=== PATIENT | male | born 1990 | race African-American/Black ===

== ENCOUNTER 2019-05-08 12:32 | Emergency (ER) | payer SELFPAY ==
[~2019-05-08] VITALS: Ht 185.4 cm; Wt 128.8 kg
[~2019-05-08 12:32] MED LIST: AMLO10TA8 PO; OXYC1TAB22 PO
[2019-05-08 12:41] VITALS: BP 154/81
[2019-05-08] MEDS ORDERED: IBUP-1007 PO (12:55)
[2019-05-08] MEDS ORDERED: ORPH100T PO (12:55)
--- NOTE | 2019-05-08 12:55 | PHYS DOC ---
Past Medical History Past Medical History: No Pertinent History Past Surgical History: Appendectomy Alcohol Use: Occasionally Drug Use: None Adult General Chief Complaint Chief Complaint: LOWER BACK PAIN OR INJURY HPI HPI Patient is a 29 year old male that presents with lower back pain has been ongoing since Tuesday. The patient states he was doing laundry at a laundry basket down in his lower back started hurting. The patient states that it is gotten slightly better but is still lingering. He rates his pain as 6 out of 10 in severity. Review of Systems Review of Systems Constitutional: Denies fever or chills [] Eyes: Denies change in visual acuity, redness, or eye pain [] HENT: Denies nasal congestion or sore throat [] Respiratory: Denies cough or shortness of breath [] Cardiovascular: No additional information not addressed in HPI [] GI: Denies abdominal pain, nausea, vomiting, bloody stools or diarrhea [] : Denies dysuria or hematuria [] Musculoskeletal: Reports back pain. Integument: Denies rash or skin lesions [] Neurologic: Denies headache, focal weakness or sensory changes [] Endocrine: Denies polyuria or polydipsia [] Complete systems were reviewed and found to be within normal limits, except as documented in this note. Current Medications Current Medications Current Medications Medications (Trade) Dose Ordered Sig/Pooja Start Time Stop Time Status Last Admin Dose Admin Ketorolac Tromethamine (Toradol Im) 30 mg 1X ONCE 05/08/19 13:00 05/08/19 13:01 Orphenadrine Citrate (Norflex) 60 mg 1X ONCE 05/08/19 13:00 05/08/19 13:01 Allergies Allergies Allergies Coded Allergies Type Severity Reaction Last Updated Verified No Known Drug Allergies 10/08/15 No Physical Exam Physical Exam Constitutional: Well developed, well nourished, no acute distress, non-toxic appearance. [] HENT: Normocephalic, atraumatic, bilateral external ears normal, oropharynx mo ist, no oral exudates, nose normal. [] Eyes: PERRLA, EOMI, conjunctiva normal, no discharge. [] Neck: Normal range of motion, no tenderness, supple, no stridor. [] Cardiovascular:Heart rate regular rhythm, no murmur [] Lungs & Thorax: Bilateral breath sounds clear to auscultation [] Abdomen: Bowel sounds normal, soft, no tenderness, no masses, no pulsatile masses. [] Skin: Warm, dry, no erythema, no rash. [] Back: lower back tenderness in the lumbar area to the right of spine, no CVA tenderness. [] Extremities: No tenderness, no cyanosis, no clubbing, ROM intact, no edema. [] Neurologic: Alert and oriented X 3, normal motor function, normal sensory function, no focal deficits noted. [] Psychologic: Affect normal, judgement normal, mood normal. [] Current Patient Data Vital Signs Vital Signs Date Time Temp Pulse Resp B/P (MAP) Pulse Ox O2 Delivery O2 Flow Rate FiO2 05/08/19 12:41 99.1 86 16 154/81 (105) 95 Room Air 99.1 EKG EKG [] Radiology/Procedures Radiology/Procedures [] Course & Med Decision Making Course & Med Decision Making Pertinent Labs and Imaging studies reviewed. (See chart for details) Appears musculoskeletal in nature. Will give Norflex/Toradol and write a script for home. Dragon Disclaimer Dragon Disclaimer This electronic medical record was generated, in whole or in part, using a voice recognition dictation system. Departure Departure Impression: Primary Impression: Lower back injury Disposition: HOME, SELF-CARE Condition: STABLE Referrals: NO PCP (PCP) Patient Instructions: Back Pain, Adult Additional Instructions: Thank you for visiting [facility]. We appreciate you trusting us with your care. If any additional problems come up don't hesitate to return to visit us. Please follow up with your primary care provider so they can plan additional care if needed and know about the problem that you had. If symptoms worsen come back to the Emergency Department. Any concerning symptoms that start such as chest pain, shortness of air, weakness or numbness on one side of the body, running high fevers or any other concerning symptoms return to the ER. Please fill your medications at any pharmacy and follow the prescription instructions. Scripts Ibuprofen (IBUPROFEN) 600 Mg Tablet 600 MG PO PRN Q6HRS PRN for INFLAMMATION, #20 TAB Prov: ROYA STARKS APRN 05/08/19 Orphenadrine Citrate (ORPHENADRINE CITRATE) 100 Mg Tablet.er 1 TAB PO BID PRN for MUSCLE SPASMS, #30 TAB Prov: ROYA STARKS APRN 05/08/19 Problem Qualifiers Primary Impression: Lower back injury Encounter type: initial encounter Qualified Codes: S39.92XA - Unspecified injury of lower back, initial encounter ROYA STARKS APRN May 08, 2019 12:55
[2019-05-08] MEDS ORDERED: KETOROLAC 60 MG/2 ML VIAL. IM ONE (13:00)
[2019-05-08] MEDS ORDERED: ORPHENADRINE CITRATE 60 MG/2 ML VIAL. IM ONE (13:00)
== END 2019-05-08 13:47 | disposition home or self-care (01) ==
LOC: ER 12:32
DX: S39.82XA Other specified injuries of lower back, initial encounter (principal); Z90.89 Acquired absence of other organs; X50.9XXA Other and unspecified overexertion or strenuous movements or postures, initial encounter; Y93.E2 Activity, laundry; Y92.89 Other specified places as the place of occurrence of the external cause; Y99.8 Other external cause status
CPT/HCPCS: 96372; 99284; J1885; J2360

== ENCOUNTER 2019-07-20 04:49 | Emergency (ER) | payer SELFPAY ==
[~2019-07-20] VITALS: Ht 188 cm; Wt 136.1 kg
[~2019-07-20 04:49] MED LIST changes: +IBUP-1007 PO; +ORPH100T PO
--- NOTE | 2019-07-20 05:44 | PHYS DOC ---
Past Medical History Past Medical History: No Pertinent History (PRATEEK LARSEN MD) Past Surgical History: Appendectomy (PRATEEK LARSEN MD) Alcohol Use: Occasionally Drug Use: Marijuana (PRATEEK LARSEN MD) Adult General Chief Complaint Chief Complaint: ABDOMINAL PAIN HPI HPI 29-year-old male presents to the emergency department with complaints of left lower quadrant abdominal pain, described as dull sensation. Patient states started around 3 yesterday. He describes nausea, vomiting, hematemesis, constipation, no fever. Nothing makes his pain worse, nothing makes his pain better. Patient does have a history of tobacco use. No history of abdominal pain, he states he's had a history of appendicitis status post surgery. (PRATEEK LARSEN MD) Review of Systems Review of Systems Constitutional: Denies fever or chills [] Respiratory: Denies cough or shortness of breath [] Cardiovascular: No additional information not addressed in HPI [] GI: Left lower quadrant abdominal pain, nausea, vomiting : Denies dysuria or hematuria [] Integument: Denies rash or skin lesions [] Neurologic: Denies headache, focal weakness or sensory changes [] Endocrine: Denies polyuria or polydipsia [] All other systems were reviewed and found to be within normal limits, except as documented in this note. (PRATEEK LARSEN MD) Current Medications Current Medications Current Medications Medications (Trade) Dose Ordered Sig/Pooja Start Time Stop Time Status Last Admin Dose Admin Info (CONTRAST GIVEN -- Rx MONITORING) 1 each PRN DAILY PRN 07/20/19 06:30 07/22/19 06:29 Iohexol (Omnipaque 300 Mg/ml) 75 ml 1X ONCE 07/20/19 06:30 07/20/19 06:31 DC 07/20/19 06:36 75 ML Morphine Sulfate (Morphine Sulfate) 4 mg 1X ONCE 07/20/19 05:45 07/20/19 05:46 DC 07/20/19 06:04 4 MG Ondansetron HCl (Zofran) 4 mg 1X ONCE 07/20/19 05:45 07/20/19 05:46 DC 07/20/19 06:04 4 MG Sodium Chloride 1,000 ml @ 1,000 mls/hr Q1H 07/20/19 05:45 07/20/19 06:44 DC 07/20/19 06:03 1,000 MLS/HR (MARY AMBRIZ MD) Allergies Allergies Allergies Coded Allergies Type Severity Reaction Last Updated Verified No Known Drug Allergies 10/08/15 No (MARY AMBRIZ MD) Physical Exam Physical Exam Constitutional: Well developed, well nourished, mild distress secondary to pain, non-toxic appearance. [] HENT: Normocephalic, atraumatic, bilateral external ears normal, oropharynx moist, no oral exudates, nose normal. [] Eyes: PERRLA, EOMI, conjunctiva normal, no discharge. [] Cardiovascular:Heart rate regular rhythm, no murmur [] Lungs & Thorax: Bilateral breath sounds clear to auscultation [] Abdomen: Bowel sounds normal, soft, tender to palpation left lower quadrant, no masses, no pulsatile masses. [] Skin: Warm, dry, no erythema, no rash. [] Back: No tenderness, no CVA tenderness. [] Extremities: No tenderness, no edema. [] Neurologic: Alert and oriented X 3, no focal deficits noted. [] Psychologic: Affect normal, judgement normal, mood normal. [] (PRATEEK LARSEN MD) Current Patient Data Vital Signs Vital Signs Date Time Temp Pulse Resp B/P (MAP) Pulse Ox O2 Delivery O2 Flow Rate FiO2 07/20/19 06:04 16 98 07/20/19 05:03 98.4 81 151/70 (97) Room Air 98.4 (MARY AMBRIZ MD) Lab Values Laboratory Tests Test 07/20/19 05:55 White Blood Count 6.2 x10^3/uL (4.0-11.0) Red Blood Count 5.94 x10^6/uL (4.30-5.70) H Hemoglobin 16.6 g/dL (13.0-17.5) Hematocrit 49.0 % (39.0-53.0) Mean Corpuscular Volume 82 fL (79-100) Mean Corpuscular Hemoglobin 28 pg (25-35) Mean Corpuscular Hemoglobin Concent 34 g/dL (31-37) Red Cell Distribution Width 13.1 % (11.5-14.5) Platelet Count 146 x10^3/uL (140-400) Neutrophils (%) (Auto) 69 % (31-73) Lymphocytes (%) (Auto) 22 % (24-48) L Monocytes (%) (Auto) 8 % (0-9) Eosinophils (%) (Auto) 1 % (0-3) Basophils (%) (Auto) 0 % (0-3) Neutrophils # (Auto) 4.3 x10^3/uL (1.8-7.7) Lymphocytes # (Auto) 1.4 x10^3/uL (1.0-4.8) Monocytes # (Auto) 0.5 x10^3/uL (0.0-1.1) Eosinophils # (Auto) 0.0 x10^3/uL (0.0-0.7) Basophils # (Auto) 0.0 x10^3/uL (0.0-0.2) Urine Collection Type Unknown Urine Color Yellow Urine Clarity Clear Urine pH 6.0 Urine Specific Newcomb 1.020 Urine Protein Negative mg/dL (NEG-TRACE) Urine Glucose (UA) Negative mg/dL (NEG) Urine Ketones (Stick) Negative mg/dL (NEG) Urine Blood Negative (NEG) Urine Nitrite Negative (NEG) Urine Bilirubin Negative (NEG) Urine Urobilinogen Dipstick 0.2 mg/dL (0.2 mg/dL) Urine Leukocyte Esterase Negative (NEG) Urine RBC 0 /HPF (0-2) Urine WBC Occ /HPF (0-4) Urine Squamous Epithelial Cells Occ /LPF Urine Bacteria 0 /HPF (0-FEW) Urine Mucus Mod /LPF Sodium Level 140 mmol/L (136-145) Potassium Level 4.3 mmol/L (3.5-5.1) Chloride Level 104 mmol/L (98-107) Carbon Dioxide Level 29 mmol/L (21-32) Anion Gap 7 (6-14) Blood Urea Nitrogen 16 mg/dL (8-26) Creatinine 1.2 mg/dL (0.7-1.3) Estimated GFR (Cockcroft-Gault) 86.6 BUN/Creatinine Ratio 13 (6-20) Glucose Level 118 mg/dL (70-99) H Calcium Level 9.1 mg/dL (8.5-10.1) Total Bilirubin 0.3 mg/dL (0.2-1.0) Aspartate Amino Transferase (AST) 26 U/L (15-37) Alanine Aminotransferase (ALT) 44 U/L (16-63) Alkaline Phosphatase 72 U/L (46-116) Total Protein 7.2 g/dL (6.4-8.2) Albumin 3.8 g/dL (3.4-5.0) Albumin/Globulin Ratio 1.1 (1.0-1.7) Laboratory Tests 07/20/19 05:55 Laboratory Tests 07/20/19 05:55 (MARY AMBRIZ MD) EKG EKG [] (PRATEEK LARSEN MD) Radiology/Procedures Radiology/Procedures [] (PRATEEK LARSEN MD) Radiology/Procedures [facility] [address] [place], [place] [id number] IMAGING REPORT Signed PATIENT: RO SARAVIA LACCOUNT: [id number] : 1990 LOCATION: ER AGE: 29 SEX: M EXAM STATUS: REG ER ORD. PHYSICIAN: PRATEEK LARSEN MD REASON: fever, abdominal pain, LLQ pain PROCEDURE: CT ABD PELV W/ IV CONTRST ONLY Examination: CT ABD PELV W/ IV CONTRST ONLY History: Fever, abdominal pain, left lower quadrant pain Comparison/Correlation: 10/08/2015 CT abdomen and pelvis with contrast Findings: Axial images of the abdomen and pelvis were obtained following IV contrast. Sagittal and coronal reformatted images were provided. Visualized lung bases are clear. Liver, spleen, pancreas, adrenal glands, and kidneys are normal. Gallbladder fossa is unremarkable. No bowel obstruction or extraluminal gas. The appendix is not identified presumably related to surgical history. Small umbilical hernia contains omental fat. No ascites or pelvic free fluid. No enlarged abdominal or pelvic lymph nodes. The urinary bladder is unremarkable. Bony structures are unremarkable. Impression: Small umbilical hernia contains omental fat. No inflammatory or other suspicious process. PQRS Compliance Statement: One or more of the following individualized dose reduction techniques were utilized for this examination: 1. Automated exposure control 2. Adjustment of the mA and/or kV according to patient size 3. Use of iterative reconstruction technique Electronically signed by: Pablo Pedroza MD (07/20/2019 7:41 AM) [facility] DICTATED and SIGNED BY: PABLO PEDROZA MD DATE: 07/20/19 0741 (MARY AMBRIZ MD) Course & Med Decision Making Course & Med Decision Making Pertinent Labs and Imaging studies reviewed. (See chart for details) []29-year-old male presents to the emergency department with complaints of left lower quadrant abdominal pain, described as dull sensation. Patient states started around 3 yesterday. He describes nausea, vomiting, hematemesis, constipation, no fever. Nothing makes his pain worse, nothing makes his pain better. Patient does have a history of tobacco use. No history of abdominal pain, he states he's had a history of appendicitis status post surgery. Morphine 4 mg, Zofran 4 mg, IV fluids initiated CT the abdomen and pelvis pending Patient's care will be transferred to my colleague at 0 6 AM. (PRATEEK LARSEN MD) Course & Med Decision Making Patient care transferred to ct at 0600 for following up with the results of CT of abdomen and pelvis. CT did not show acute finding except for small umbilical hernia containing omental fat. Labs was unremarkable. Dr. Larsen suggested to discharge patient home if the CT is normal.Drink plenty of liquids Follow-up with your primary care physician in 3-5 days Return to ER if not getting better (MARY AMBRIZ MD) Dragon Disclaimer Dragon Disclaimer This electronic medical record was generated, in whole or in part, using a voice recognition dictation system. (PRATEEK LARSEN MD) Departure Departure Impression: Primary Impression: Abdominal pain Additional Impression: Nausea and vomiting Condition: IMPROVED Referrals: NO PCP (PCP) Patient Instructions: Abdominal Pain, Nausea and Vomiting Additional Instructions: Drink plenty of liquids Follow-up with your primary care physician in 3-5 days Return to ER if not getting better Scripts Hydrocodone/Apap 5-325 (NORCO 5-325 TABLET) 1 Each Tablet 1 TAB PO PRN Q6HRS PRN for PAIN, #10 TAB 0 Refills Prov: MARY AMBRIZ MD 07/20/19 Ondansetron Hcl (ZOFRAN) 4 Mg Tablet 1 TAB PO PRN Q6-8HRS for nausea, #12 TAB Prov: MARY AMBRIZ MD 07/20/19 Problem Qualifiers Primary Impression: Abdominal pain Abdominal location: left lower quadrant Qualified Codes: R10.32 - Left lower quadrant pain Additional Impression: Nausea and vomiting Vomiting type: unspecified Vomiting Intractability: non-intractable Qualified Codes: R11.2 - Nausea with vomiting, unspecified PRATEEK LARSEN MD Jul 20, 2019 05:44 MARY AMBRIZ MD Jul 20, 2019 07:54
[2019-07-20] MEDS ORDERED: ONDANSETRON PF 4 MG/2 ML VIAL. IV ONE (05:45)
[2019-07-20] MEDS ORDERED: IV NORMAL SALINE 1000ML BAG 1,000 ML IV SCH (05:45)
[2019-07-20] MEDS ORDERED: MORPHINE SULFATE 4 MG/ML VIAL. IV ONE (05:45)
[2019-07-20 06:15] LABS: CALCIUM 9.1 mg/dL (8.5-10.1); CREATININE 1.2 mg/dL (0.7-1.3); GFR 86.6; POTASSIUM 4.3 mmol/L (3.5-5.1)
[2019-07-20 06:16] LABS: BASO % 0 % (0-3); EOS % 1 % (0-3); HEMOGLOBIN 16.6 g/dL (13.0-17.5); LYMPH # 1.4 x10^3/uL (1.0-4.8); LYMPH % 22 % (24-48); MEAN CORPUSCULAR HEMOGLOBIN 28 pg (25-35); MEAN CORPUSCULAR HGB CONC 34 g/dL (31-37); MEAN CORPUSCULAR VOLUME 82 fL (79-100); MONO # 0.5 x10^3/uL (0.0-1.1); MONO % 8 % (0-9); NEUT # 4.3 x10^3/uL (1.8-7.7); NEUT % 69 % (31-73); PLATELET COUNT 146 x10^3/uL (140-400); RED BLOOD COUNT 5.94 x10^6/uL (4.30-5.70); RED CELL DISTRIBUTION WIDTH 13.1 % (11.5-14.5); WHITE BLOOD COUNT 6.2 x10^3/uL (4.0-11.0)
[2019-07-20 06:21] LABS: ALBUMIN 3.8 g/dL (3.4-5.0); ALBUMIN/GLOBULIN RATIO 1.1 (1.0-1.7); TOTAL BILIRUBIN 0.3 mg/dL (0.2-1.0); TOTAL PROTEIN 7.2 g/dL (6.4-8.2)
[2019-07-20 06:24] LABS: BILIRUBIN,URINE NEGATIVE (NEG); CLARITY,URINE CLEAR; COLOR,URINE YELLOW; NITRITE,URINE NEGATIVE (NEG); PROTEIN,URINE NEGATIVE (NEG-TRACE); UROBILINOGEN,URINE 0.2 mg/dL (0.2 mg/dL)
[2019-07-20] MEDS ORDERED: CONTRAST GIVEN. MC PRN (06:30)
[2019-07-20] MEDS ORDERED: IOHEXOL 300 MG/ML 100ML VIAL. IV ONE (06:30)
[2019-07-20 06:46] LABS: RBC,URINE 0 /HPF (0-2); WBC,URINE OCC /HPF (0-4)
[2019-07-20 06:47] LABS: BACTERIA,URINE 0 /HPF (0-FEW); SQUAMOUS EPITHELIAL CELL,UR OCC /LPF
--- NOTE | 2019-07-20 07:43 | RAD ---
Examination: CT ABD PELV W/ IV CONTRST ONLY History: Fever, abdominal pain, left lower quadrant pain Comparison/Correlation: 10/08/2015 CT abdomen and pelvis with contrast Findings: Axial images of the abdomen and pelvis were obtained following IV contrast. Sagittal and coronal reformatted images were provided. Visualized lung bases are clear. Liver, spleen, pancreas, adrenal glands, and kidneys are normal. Gallbladder fossa is unremarkable. No bowel obstruction or extraluminal gas. The appendix is not identified presumably related to surgical history. Small umbilical hernia contains omental fat. No ascites or pelvic free fluid. No enlarged abdominal or pelvic lymph nodes. The urinary bladder is unremarkable. Bony structures are unremarkable. Impression: Small umbilical hernia contains omental fat. No inflammatory or other suspicious process. PQRS Compliance Statement: One or more of the following individualized dose reduction techniques were utilized for this examination: 1. Automated exposure control 2. Adjustment of the mA and/or kV according to patient size 3. Use of iterative reconstruction technique Electronically signed by: Pablo Long MD (07/20/2019 7:41 AM) [facility]
[2019-07-20] MEDS ORDERED: ONDA4TAB7 PO ×2 (07:52→07:54)
[2019-07-20] MEDS ORDERED: HYDR-3164 PO ×2 (07:52→07:54)
[2019-07-20 08:17] VITALS: BP 143/82
== END 2019-07-20 08:21 | disposition home or self-care (01) ==
LOC: ER 04:49
DX: R10.32 Left lower quadrant pain (principal); R11.2 Nausea with vomiting, unspecified; Z90.89 Acquired absence of other organs
CPT/HCPCS: 36415; 74177; 80053; 81001; 85025; 96361; 96374; 96375; 99285; J2270; J2405; J7030; Q9967

== ENCOUNTER 2020-07-26 00:35 | Emergency (ER) | payer BC ==
[~2020-07-26] VITALS: Ht 185.4 cm; Wt 136.0 kg
[~2020-07-26 00:35] MED LIST changes: +AMLO-187 PO; -AMLO10TA8 PO; +HYDR-3164 PO; +ONDA4TAB7 PO
[2020-07-26] MEDS ORDERED: ONDANSETRON PF 4 MG/2 ML VIAL. ONE (01:01)
[2020-07-26] MEDS ORDERED: DICYCLOMINE 20 MG/2 ML VIAL. IM ONE ×2 (01:01→01:45)
[2020-07-26 01:28] LABS: BASO % 0 % (0-3); EOS # 0.1 x10^3/uL (0.0-0.7); EOS % 1 % (0-3); HEMATOCRIT 47.7 % (39.0-53.0); HEMOGLOBIN 16.4 g/dL (13.0-17.5); LYMPH % 25 % (24-48); MEAN CORPUSCULAR HEMOGLOBIN 28 pg (25-35); MEAN CORPUSCULAR HGB CONC 34 g/dL (31-37); MEAN CORPUSCULAR VOLUME 81 fL (79-100); MONO # 0.7 x10^3/uL (0.0-1.1); MONO % 8 % (0-9); NEUT # 5.3 x10^3/uL (1.8-7.7); NEUT % 66 % (31-73); PLATELET COUNT 155 x10^3/uL (140-400); RED BLOOD COUNT 5.91 x10^6/uL (4.30-5.70); RED CELL DISTRIBUTION WIDTH 13.5 % (11.5-14.5); WHITE BLOOD COUNT 8.1 x10^3/uL (4.0-11.0)
[2020-07-26] MEDS ORDERED: IV NORMAL SALINE 1000ML BAG 1,000 ML IV ONE (01:30)
[2020-07-26] MEDS ORDERED: HALOPERIDOL LACTATE 5 MG/ML VIAL. IVP ONE (01:30)
[2020-07-26] MEDS ORDERED: diphenhydrAMINE 50 MG/ML VIAL IVP ONE (01:30)
[2020-07-26 01:38] LABS: CALCIUM 8.7 mg/dL (8.5-10.1); CREATININE 1.2 mg/dL (0.7-1.3); POTASSIUM 3.8 mmol/L (3.5-5.1)
[2020-07-26 01:44] LABS: ALBUMIN 3.7 g/dL (3.4-5.0); TOTAL BILIRUBIN 0.2 mg/dL (0.2-1.0); TOTAL PROTEIN 7.5 g/dL (6.4-8.2)
[2020-07-26] MEDS ORDERED: ONDANSETRON PF 4 MG/2 ML VIAL. IVP ONE (01:45)
[2020-07-26] MEDS ORDERED: METOCLOPRAMIDE HCL 10 MG/2 ML VIAL. ONE (01:55)
[2020-07-26] MEDS ORDERED: CONTRAST GIVEN. MC PRN (02:15)
--- NOTE | 2020-07-26 02:23 | RAD ---
CT abdomen pelvis with contrast. HISTORY:, Emesis, CT scan of the abdomen pelvis was done using Omnipaque 300 contrast. Lung bases are clear. There is no effusion. A liver lesion is not identified. Spleen and adrenal glands are normal. Pancreas is normal. There is no mass or hydronephrosis in the kidneys. There is no calcified gallstone. There is respiratory motion artifact. There is no small bowel obstruction. There is diverticulosis of the colon without an acute diverticulitis. Appendix is not identified. There is an umbilical hernia. There is no retroperitoneal adenopathy. IMPRESSION: 1. No abdominal or pelvic mass noted. 2. No bowel obstruction. 3. No other acute finding. PQRS Compliance Statement: One or more of the following individualized dose reduction techniques were utilized for this examination: 1. Automated exposure control 2. Adjustment of the mA and/or kV according to patient size 3. Use of iterative reconstruction technique Electronically signed by: Mejia Prince MD (07/26/2020 2:20 AM) [id number]
[2020-07-26] MEDS ORDERED: METOCLOPRAMIDE HCL 10 MG/2 ML VIAL. IVP ONE (02:30)
[2020-07-26] MEDS ORDERED: IOHEXOL 300 MG/ML 100ML VIAL. IV ONE (02:30)
[2020-07-26 02:59] LABS: BILIRUBIN,URINE NEGATIVE (NEG); CLARITY,URINE CLEAR; COLOR,URINE YELLOW; NITRITE,URINE NEGATIVE (NEG); PROTEIN,URINE NEGATIVE (NEG-TRACE); UROBILINOGEN,URINE 0.2 mg/dL (0.2 mg/dL)
[2020-07-26 03:04] LABS: AMPHETAMINE/METHAMPHETAMINE NEG (NEG); BACTERIA,URINE 0 /HPF (0-FEW); BARBITURATES NEG (NEG); BENZODIAZEPINES NEG (NEG); CANNABINOIDS POS (NEG); COCAINE NEG (NEG); METHADONE NEG (NEG); OPIATES NEG (NEG); PHENCYCLIDINE NEG (NEG); RBC,URINE 0 /HPF (0-2); WBC,URINE RARE /HPF (0-4)
[2020-07-26] MEDS ORDERED: KETOROLAC 30 MG/ML VIAL. IVP ONE (03:30)
[2020-07-26] MEDS ORDERED: ONDA4TAB7 PO (04:06)
[2020-07-26] MEDS ORDERED: DICY20TA3 PO (04:06)
--- NOTE | 2020-07-26 04:07 | ED.ADGEN ---
Past Medical History Past Medical History: No Pertinent History Past Surgical History: Appendectomy Smoking Status: Current Every Day Smoker Alcohol Use: Occasionally Drug Use: Marijuana General Adult EDM: Chief Complaint: NAUSEA/VOMITING/DIARRHA HPI: HPI: Patient is a 30 year [id number] male coming in for multiple episodes of emesis started about 2 hours prior to arrival. Patient had woken up and went to use the restroom the vomiting started. The vomiting is nonbloody or bilious. Denies any undercooked food or recent travel, no sick contacts. Patient states he has been using marijuana concentrate and his friends vape pen is often around them when they are smoking. Denies any diarrhea or constipation. Has a history of open appendectomy. Denies any history of previous bowel obstructions. No known food allergies. Describes abdominal pain as spasming and moves around in location, no localized area of pain Review of Systems: Review of Systems: Constitutional: Denies fever or chills. [] Eyes: Denies change in visual acuity. [] HENT: Denies nasal congestion or sore throat. [] Respiratory: Denies cough or shortness of breath. [] Cardiovascular: Denies chest pain or edema. [] GI: Generalized abdominal pain, vomiting, no diarrhea, bloody stools, constipation. : Denies dysuria. [] Musculoskeletal: Denies back pain or joint pain. [] Integument: Denies rash. [] Neurologic: Denies headache, focal weakness or sensory changes. [] Endocrine: Denies polyuria or polydipsia. [] Lymphatic: Denies swollen glands. [] Psychiatric: Denies depression or anxiety. [] Current Medications: Current Medications Medications (Trade) Dose Ordered Sig/Pooja Start Time Stop Time Status Last Admin Dose Admin Dicyclomine HCl (Bentyl) 20 mg 1X ONCE 07/26/20 01:45 07/26/20 01:46 DC 07/26/20 01:37 20 MG Diphenhydramine HCl (Benadryl) 50 mg 1X ONCE 07/26/20 01:30 07/26/20 01:31 DC 07/26/20 01:41 50 MG Haloperidol Lactate (Haldol Inj) 5 mg 1X ONCE 07/26/20 01:30 07/26/20 01:31 DC 07/26/20 01:41 5 MG Info (CONTRAST GIVEN -- Rx MONITORING) 1 each PRN DAILY PRN 07/26/20 02:15 07/28/20 02:14 Iohexol (Omnipaque 300 Mg/ml) 75 ml 1X ONCE 07/26/20 02:30 07/26/20 02:31 DC 07/26/20 02:07 75 ML Ketorolac Tromethamine (Toradol 30mg Vial) 30 mg 1X ONCE 07/26/20 03:30 07/26/20 03:31 DC 07/26/20 03:15 30 MG Metoclopramide HCl (Reglan Vial) 10 mg 1X ONCE 07/26/20 02:30 07/26/20 02:31 DC 07/26/20 02:00 10 MG Ondansetron HCl (Zofran) 4 mg 1X ONCE 07/26/20 01:45 07/26/20 01:46 DC 07/26/20 01:37 4 MG Sodium Chloride 1,000 ml @ 1,000 mls/hr 1X ONCE 07/26/20 01:30 07/26/20 02:29 DC 07/26/20 01:30 1,000 MLS/HR Allergies: Allergies: Allergies Coded Allergies Type Severity Reaction Last Updated Verified No Known Drug Allergies 10/08/15 No Physical Exam: PE: Constitutional: Well developed, well nourished, moderate acute distress, non- toxic appearance. [] HENT: Normocephalic, atraumatic, bilateral external ears normal, oropharynx moist, no oral exudates, nose normal. [] Eyes: PERRLA, EOMI, conjunctiva normal, no discharge. [] Neck: Normal range of motion, no tenderness, supple, no stridor. [] Cardiovascular:Heart rate regular rhythm, no murmur [] Lungs & Thorax: Bilateral breath sounds clear to auscultation [] Abdomen: Soft, nondistended, generalized tenderness to palpation, no rebound, negative Alfredo sign [] Skin: Warm, dry, no erythema, no rash. [] Back: No tenderness, no CVA tenderness. [] Extremities: No tenderness, no cyanosis, no clubbing, ROM intact, no edema. [] Neurologic: Alert and oriented X 3, normal motor function, normal sensory function, no focal deficits noted. [] Psychologic: Affect normal, judgement normal, mood normal. [] Current Patient Data: Labs: Laboratory Tests Test 07/26/20 01:00 07/26/20 02:50 White Blood Count 8.1 x10^3/uL (4.0-11.0) Red Blood Count 5.91 x10^6/uL (4.30-5.70) H Hemoglobin 16.4 g/dL (13.0-17.5) Hematocrit 47.7 % (39.0-53.0) Mean Corpuscular Volume 81 fL (79-100) Mean Corpuscular Hemoglobin 28 pg (25-35) Mean Corpuscular Hemoglobin Concent 34 g/dL (31-37) Red Cell Distribution Width 13.5 % (11.5-14.5) Platelet Count 155 x10^3/uL (140-400) Neutrophils (%) (Auto) 66 % (31-73) Lymphocytes (%) (Auto) 25 % (24-48) Monocytes (%) (Auto) 8 % (0-9) Eosinophils (%) (Auto) 1 % (0-3) Basophils (%) (Auto) 0 % (0-3) Neutrophils # (Auto) 5.3 x10^3/uL (1.8-7.7) Lymphocytes # (Auto) 2.0 x10^3/uL (1.0-4.8) Monocytes # (Auto) 0.7 x10^3/uL (0.0-1.1) Eosinophils # (Auto) 0.1 x10^3/uL (0.0-0.7) Basophils # (Auto) 0.0 x10^3/uL (0.0-0.2) Sodium Level 139 mmol/L (136-145) Potassium Level 3.8 mmol/L (3.5-5.1) Chloride Level 104 mmol/L (98-107) Carbon Dioxide Level 25 mmol/L (21-32) Anion Gap 10 (6-14) Blood Urea Nitrogen 16 mg/dL (8-26) Creatinine 1.2 mg/dL (0.7-1.3) Estimated GFR (Cockcroft-Gault) 86.0 BUN/Creatinine Ratio 13 (6-20) Glucose Level 121 mg/dL (70-99) H Lactic Acid Level 1.7 mmol/L (0.4-2.0) Calcium Level 8.7 mg/dL (8.5-10.1) Total Bilirubin 0.2 mg/dL (0.2-1.0) Aspartate Amino Transferase (AST) 32 U/L (15-37) Alanine Aminotransferase (ALT) 68 U/L (16-63) H Alkaline Phosphatase 66 U/L (46-116) Total Protein 7.5 g/dL (6.4-8.2) Albumin 3.7 g/dL (3.4-5.0) Albumin/Globulin Ratio 1.0 (1.0-1.7) Lipase 111 U/L (73-393) Urine Collection Type Unknown Urine Color Yellow Urine Clarity Clear Urine pH 7.0 (<5.0-8.0) Urine Specific [place] >=1.030 (1.000-1.030) Urine Protein Negative mg/dL (NEG-TRACE) Urine Glucose (UA) Negative mg/dL (NEG) Urine Ketones (Stick) Negative mg/dL (NEG) Urine Blood Negative (NEG) Urine Nitrite Negative (NEG) Urine Bilirubin Negative (NEG) Urine Urobilinogen Dipstick 0.2 mg/dL (0.2 mg/dL) Urine Leukocyte Esterase Negative (NEG) Urine RBC 0 /HPF (0-2) Urine WBC Rare /HPF (0-4) Urine Squamous Epithelial Cells Few /LPF Urine Bacteria 0 /HPF (0-FEW) Urine Mucus Slight /LPF Urine Opiates Screen Neg (NEG) Urine Methadone Screen Neg (NEG) Urine Barbiturates Neg (NEG) Urine Phencyclidine Screen Neg (NEG) Urine Amphetamine/Methamphetamine Neg (NEG) Urine Benzodiazepines Screen Neg (NEG) Urine Cocaine Screen Neg (NEG) Urine Cannabinoids Screen Pos (NEG) Urine Ethyl Alcohol Neg (NEG) Laboratory Tests 07/26/20 01:00 Laboratory Tests 07/26/20 01:00 Vital Signs: Vital Signs Date Time Temp Pulse Resp B/P (MAP) Pulse Ox O2 Delivery O2 Flow Rate FiO2 07/26/20 01:46 76 18 181/125 (143) 100 Room Air 07/26/20 00:40 98.7 98.7 EKG: EKG: [] Heart Score: Risk Factors: Risk Factors: DM, Current or recent (<one month) smoker, HTN, HLP, family history of CAD, obesity. Risk Scores: Score 0 - 3: 2.5% MACE over next 6 weeks - Discharge Home Score 4 - 6: 20.3% MACE over next 6 weeks - Admit for Clinical Observation Score 7 - 10: 72.7% MACE over next 6 weeks - Early Invasive Strategies Radiology/Procedures: Radiology/Procedures: PROCEDURE: CT ABD PELV W/ IV CONTRST ONLY CT abdomen pelvis with contrast. HISTORY:, Emesis, CT scan of the abdomen pelvis was done using Omnipaque 300 contrast. Lung bases are clear. There is no effusion. A liver lesion is not identified. Spleen and adrenal glands are normal. Pancreas is normal. There is no mass or hydronephrosis in the kidneys. There is no calcified gallstone. There is respiratory motion artifact. There is no small bowel obstruction. There is diverticulosis of the colon without an acute diverticulitis. Appendix is not identified. There is an umbilical hernia. There is no retroperitoneal adenopathy. IMPRESSION: 1. No abdominal or pelvic mass noted. 2. No bowel obstruction. 3. No other acute finding. [] Course & Med Decision Making: Course & Med Decision Making Pertinent Labs and Imaging studies reviewed. (See chart for details) Pain improving tolerating p.o. [] Dragon Disclaimer: Dragon Disclaimer: This electronic medical record was generated, in whole or in part, using a voice recognition dictation system. Departure Departure Impression: Primary Impression: Abdominal pain Additional Impression: Nausea & vomiting Disposition: 01 DC HOME SELF CARE/HOMELESS Condition: IMPROVED Referrals: NO PCP (PCP) Patient Instructions: Nausea and Vomiting Additional Instructions: [facility] [address] [place] [address] [facility] [address] [place] [address] [facility] [address] [facility] [place] [address] [facility] [address] [place] [address] [facility] [address] [place] [address] [facility] [address] [place] [address] [facility] [address] [place] [address] [facility] [address] [place] [address] [employer] [address] [place] [address] [facility] [address] [place] [address] Scripts Ondansetron Hcl (ZOFRAN) 4 Mg Tablet 1 TAB PO Q8HRS for nausea for 5 Days, #15 TAB Prov: ANGELA NELSON MD 07/26/20 Dicyclomine Hcl (DICYCLOMINE HCL) 20 Mg Tablet 1 TAB PO TID for abdominal pain for 5 Days, #15 TAB 1 Refill Prov: ANGELA NELSON MD 07/26/20 Problem Qualifiers ANGELA NELSON MD Jul 26, 2020 04:07
[2020-07-26 04:28] VITALS: BP 186/87
== END 2020-07-26 04:28 | disposition home or self-care (01) ==
LOC: ER 00:35
DX: R10.84 Generalized abdominal pain (principal); R11.2 Nausea with vomiting, unspecified; F17.200 Nicotine dependence, unspecified, uncomplicated; Z90.89 Acquired absence of other organs
CPT/HCPCS: 36415; 74177; 80053; 80307; 81001; 83605; 83690; 85025; 96361; 96372; 96374; 96375; 99285; J0500; J1200; J1630; J1885; J2405; J2765; J7030; Q9967